=== PATIENT | female | born 1970 | race Caucasian/White ===

== ENCOUNTER 2019-04-06 10:37 | Emergency (ER) | payer BC ==
[2019-04-06 11:11] VITALS: TEMP 98
[2019-04-06] MEDS ORDERED: NALOXONE 0.4 MG/ML 1 ML VIAL IV PRN (11:59)
[2019-04-06] MEDS ORDERED: SODIUM CHLORIDE 0.9% 1,000 ML IV SCH (12:00)
--- NOTE | 2019-04-06 12:06 | ED ---
General Adult HPI - General Chief complaint: Eye Problems Stated complaint: Eye Infection/Problems Time Seen by Provider: 04/06/19 11:13 Source: patient, RN notes reviewed Mode of arrival: ambulatory Limitations: no limitations - History of Present Illness Initial comments: Patient is a pleasant 48-year-old female presenting to the emergency department after being seen by ophthalmology. Patient states she did have laser surgery done less than 2 weeks ago. Patient states a week ago she started having redness. Patient states redness persists. Patient was started on antibiotic eyedrops however believe she had a reaction to that. Patient went back to see the eye doctor again and was placed on different eyedrops as well as oral medication. Patient states no improvement of symptoms. Patient has mild discomfort however is tolerable. No pain with eye movement. Dr. Hernandez did call and recommends patient have iv Rocephin for 3 days. He states patient does not need ophthalmology consult this time unless she does not improve. He states patient also does not need computed tomography scan. Patient states she is on Vigamox at this time - Related Data Home Medications Medication Instructions Recorded Confirmed Amoxicillin/Potassium Clav 1 tab PO Q12HR 04/06/19 04/06/19 [Augmentin 500-125 Tablet] Moxifloxacin HCl [Moxifloxacin] 1 drop LEFT EYE Q2H 04/06/19 04/06/19 Allergies Allergy/AdvReac Type Severity Reaction Status Date / Time cyclobenzaprine AdvReac Vomiting Verified 04/06/19 12:25 [From Flexeril] dexamethasone [From TobraDex] AdvReac Swelling Verified 04/06/19 12:25 tobramycin [From TobraDex] AdvReac Swelling Verified 04/06/19 12:25 Review of Systems ROS Statement: Those systems with pertinent positive or pertinent negative responses have been documented in the HPI. ROS Other: All systems not noted in ROS Statement are negative. Constitutional: Denies: fever, chills Eyes: Reports: as per HPI, eye discharge (Minimal yellow). Denies: vision change ENT: Denies: throat pain Respiratory: Denies: cough Cardiovascular: Denies: chest pain Endocrine: Denies: fatigue Gastrointestinal: Denies: abdominal pain Genitourinary: Denies: dysuria Musculoskeletal: Denies: back pain Skin: Denies: rash Neurological: Denies: headache Past Medical History Past Medical History: Eye Disorder History of Any Multi-Drug Resistant Organisms: None Reported Past Surgical History: Section Additional Past Surgical History / Comment(s): laser eye surgery Past Psychological History: No Psychological Hx Reported Smoking Status: Never smoker Past Alcohol Use History: None Reported Past Drug Use History: None Reported General Exam Limitations: no limitations General appearance: alert, in no apparent distress Head exam: Present: normocephalic Eye exam: Present: PERRL, EOMI, conjunctival injection (On the left). Absent: nystagmus ENT exam: Present: normal oropharynx Neck exam: Present: normal inspection Respiratory exam: Present: normal lung sounds bilaterally Cardiovascular Exam: Present: regular rate, normal rhythm GI/Abdominal exam: Present: soft. Absent: tenderness Extremities exam: Present: normal inspection Neurological exam: Present: alert, CN II-XII intact Psychiatric exam: Present: normal affect, normal mood Skin exam: Present: normal color Course Vital Signs 04/06/19 04/06/19 11:08 12:24 Temperature 98.0 F Pulse Rate 84 86 Respiratory 19 16 Rate Blood Pressure 146/102 123/71 O2 Sat by Pulse 98 99 Oximetry Medical Decision Making - Medical Decision Making Case was discussed in detail with Dr. Calderon who is familiar with this patient. He states if patient is comfortable with that she can be discharged following Rocephin and he will get it for her in the office tomorrow as well as Wednesday and see her there. Patient again reevaluated and does request this. She states she has a child at home that needs extra care and resting in the hospital would be extremely difficult for her. Patient states she does have an ophthalmology appointment on Wednesday and is advised to follow-up sooner if symptoms worsen. - Lab Data Result diagrams: 04/06/19 11:55 04/06/19 11:55 Lab Results 04/06/19 04/06/19 Range/Units 11:55 11:55 WBC 5.1 (3.8-10.6) k/uL RBC 5.15 (3.80-5.40) m/uL Hgb 15.1 (11.4-16.0) gm/dL Hct 43.4 (34.0-46.0) % MCV 84.2 (80.0-100.0) fL MCH 29.3 (25.0-35.0) pg MCHC 34.8 (31.0-37.0) g/dL RDW 12.5 (11.5-15.5) % Plt Count 244 (150-450) k/uL Neutrophils % 57 % Lymphocytes % 33 % Monocytes % 6 % Eosinophils % 1 % Basophils % 0 % Neutrophils # 2.9 (1.3-7.7) k/uL Lymphocytes # 1.7 (1.0-4.8) k/uL Monocytes # 0.3 (0-1.0) k/uL Eosinophils # 0.1 (0-0.7) k/uL Basophils # 0.0 (0-0.2) k/uL Sodium 141 (137-145) mmol/L Potassium 4.2 (3.5-5.1) mmol/L Chloride 102 (98-107) mmol/L Carbon Dioxide 29 (22-30) mmol/L Anion Gap 10 mmol/L BUN 11 (7-17) mg/dL Creatinine 0.67 (0.52-1.04) mg/dL Est GFR (CKD-EPI)AfAm >90 (>60 ml/min/1.73 sqM) Est GFR (CKD-EPI)NonAf >90 (>60 ml/min/1.73 sqM) Glucose 92 (74-99) mg/dL Calcium 9.6 (8.4-10.2) mg/dL Total Bilirubin 1.1 (0.2-1.3) mg/dL AST 25 (14-36) U/L ALT 21 (4-34) U/L Alkaline Phosphatase 67 (38-126) U/L Total Protein 8.1 (6.3-8.2) g/dL Albumin 5.0 (3.5-5.0) g/dL Disposition Clinical Impression: Preseptal cellulitis Disposition: HOME SELF-CARE Is patient prescribed a controlled substance at d/c from ED?: No Time of Disposition: 13:13
[2019-04-06 12:25] VITALS: BP 123/71; PULSE 86; RESP 16
[2019-04-06 12:36] LABS: Basophils % (A) 0 %; Eosinophils # (A) 0.1 k/uL (0-0.7); Eosinophils % (A) 1 %; HCT 43.4 % (34.0-46.0); HGB 15.1 gm/dL (11.4-16.0); Lymphocytes # (A) 1.7 k/uL (1.0-4.8); Lymphocytes % (A) 33 %; MCH 29.3 pg (25.0-35.0); MCHC 34.8 g/dL (31.0-37.0); MCV 84.2 fL (80.0-100.0); Mean Platelet Volume 7.9; Monocytes # (A) 0.3 k/uL (0-1.0); Monocytes % (A) 6 %; Neutrophils # (A) 2.9 k/uL (1.3-7.7); Neutrophils % (A) 57 %; Platelet Count 244 k/uL (150-450); RBC 5.15 m/uL (3.80-5.40); RDW 12.5 % (11.5-15.5); WBC 5.1 k/uL (3.8-10.6)
[2019-04-06 12:45] LABS: ALT 21 U/L (4-34); AST 25 U/L (14-36); African American GFR (CKD) >90 (>60 ml/min/1.73 sqM); Alkaline Phosphatase 67 U/L (38-126); Anion Gap 10 mmol/L; Blood Urea Nitrogen 11 mg/dL (7-17); Calcium 9.6 mg/dL (8.4-10.2); Carbon Dioxide 29 mmol/L (22-30); Chloride 102 mmol/L (98-107); Glucose 92 mg/dL (74-99); Non-African American GFR(CKD) >90 (>60 ml/min/1.73 sqM); Potassium 4.2 mmol/L (3.5-5.1); Sodium 141 mmol/L (137-145); Total Bilirubin 1.1 mg/dL (0.2-1.3); Total Protein 8.1 g/dL (6.3-8.2)
== END 2019-04-06 13:17 | disposition home or self-care (01) ==
LOC: EC 10:37 → 6NMEDSUR 12:00 → UNDOADMOB 12:00 → 6NMEDSUR 12:28 → EC 13:17
DX: L03.213 Periorbital cellulitis (principal); Z88.1 Allergy status to other antibiotic agents; Z88.8 Allergy status to other drugs, medicaments and biological substances; Z98.890 Other specified postprocedural states; Z53.8 Procedure and treatment not carried out for other reasons
CPT/HCPCS: 80053; 85025; 87040; 99283; 96365; J0696

== ENCOUNTER 2020-07-19 18:38 | Emergency (ER) | payer BC ==
[2020-07-19 19:09] VITALS: TEMP 99.1
[2020-07-19] MEDS ORDERED: KETOROLAC 15 MG/ML 1 ML VIAL IVP STA (19:57)
[2020-07-19] MEDS ORDERED: SODIUM CHLORIDE 0.9% 1,000 ML IV ONE (19:57)
[2020-07-19] MEDS ORDERED: DEXAMETHASONE SOD PHOSPHATE 10 MG/ML 1 ML VIAL IV STA (19:57)
--- NOTE | 2020-07-19 20:44 | ED ---
General Adult HPI - General Chief complaint: Fever Stated complaint: Covid +, SOB, chest pain Time Seen by Provider: 07/19/20 19:41 Source: patient Mode of arrival: ambulatory Limitations: no limitations - History of Present Illness Initial comments: 50-year-old male patient presents to the emergency department today for evaluation of increased chest pain. Patient was diagnosed with Covid on Wednesday. States she's been having symptoms for the last 11 days. States she still has significant cough. States she constantly has pain in her chest, the muscles in her abdomen are sore as well. States the pain gets slightly worse when taking a breath. Denies taking any medications for her symptoms. States she feels generally unwell and sick. Does report some shortness of breath. Has had some nausea and diarrhea for the last three days. Reports intermittent fevers. Patient denies any recent rash, nausea, vomiting, diarrhea, constipation, back pain, numbness, tingling, dizziness, weakness, hematuria, dysuria, urinary urgency, urinary frequency, headache, visual changes, or any other complaints. - Related Data Home Medications Medication Instructions Recorded Confirmed Amoxicillin/Potassium Clav 1 tab PO Q12HR 04/06/19 04/06/19 [Augmentin 500-125 Tablet] Moxifloxacin HCl [Moxifloxacin] 1 drop LEFT EYE Q2H 04/06/19 04/06/19 Previous Rx's Medication Instructions Recorded Albuterol Sulfate [Proair Hfa] 1 - 2 puff INHALATION Q6HR PRN #1 07/19/20 inhaler Dexamethasone [Decadron] 6 mg PO DAILY #9 tablet 07/19/20 Allergies Allergy/AdvReac Type Severity Reaction Status Date / Time cyclobenzaprine AdvReac Vomiting Verified 07/19/20 19:09 [From Flexeril] dexamethasone [From TobraDex] AdvReac Swelling Verified 07/19/20 19:09 tobramycin [From TobraDex] AdvReac Swelling Verified 07/19/20 19:09 Review of Systems ROS Statement: Those systems with pertinent positive or pertinent negative responses have been documented in the HPI. ROS Other: All systems not noted in ROS Statement are negative. Past Medical History Past Medical History: Eye Disorder Additional Past Medical History / Comment(s): Covid 07/31 History of Any Multi-Drug Resistant Organisms: None Reported Past Surgical History: Section Additional Past Surgical History / Comment(s): laser eye surgery Past Psychological History: No Psychological Hx Reported Smoking Status: Former smoker Past Alcohol Use History: None Reported Past Drug Use History: None Reported General Exam Limitations: no limitations General appearance: alert, in no apparent distress, other (This is a well- developed, well-nourished adult female patient in no acute distress. Vital signs upon presentation temperature 99.1F, pulse 84, respirations 20, blood pressure 124/69, pulse ox 94% on room air.) Eye exam: Present: normal appearance, PERRL, EOMI. Absent: scleral icterus, conjunctival injection, periorbital swelling ENT exam: Present: normal exam, normal oropharynx, mucous membranes moist Respiratory exam: Present: normal lung sounds bilaterally. Absent: respiratory distress, wheezes, rales, rhonchi, stridor Cardiovascular Exam: Present: regular rate, normal rhythm, normal heart sounds. Absent: systolic murmur, diastolic murmur, rubs, gallop, clicks GI/Abdominal exam: Present: soft, normal bowel sounds. Absent: distended, tenderness, guarding, rebound, rigid Neurological exam: Present: alert, oriented X3, CN II-XII intact Psychiatric exam: Present: normal affect, normal mood Skin exam: Present: warm, dry, intact, normal color. Absent: rash Course Vital Signs 07/19/20 07/19/20 19:06 21:32 Temperature 99.1 F Pulse Rate 84 107 H Respiratory 20 22 Rate Blood Pressure 124/69 133/89 O2 Sat by Pulse 94 L 93 L Oximetry Medical Decision Making - Medical Decision Making 50-year-old female patient recently diagnosed with COVID, symptomatic for the last 11 days presents to the emergency department today for evaluation of shortness of breath and chest pain. Physical examination did reveal clear equal lung sounds. Labs reviewed and were relatively unremarkable, CRP and LDH were elevated. Chest xray showed bilateral infiltrates. She was given IV fluids and dexamethasone. She'll be discharged with prescription for dexamethasone and Pro Air. She is instructed to follow-up with her primary care physician for recheck in 1-2 days. Return parameters were discussed in detail. She verbalizes understanding and agrees with this plan. Case discussed with Dr. Aguilar. - Lab Data Result diagrams: 07/19/20 20:25 07/19/20 20:25 Lab Results 07/19/20 07/19/20 Range/Units 20:25 20:25 WBC 4.0 (3.8-10.6) k/uL RBC 5.28 (3.80-5.40) m/uL Hgb 14.6 (11.4-16.0) gm/dL Hct 43.0 (34.0-46.0) % MCV 81.4 (80.0-100.0) fL MCH 27.7 (25.0-35.0) pg MCHC 34.0 (31.0-37.0) g/dL RDW 13.3 (11.5-15.5) % Plt Count 124 L (150-450) k/uL MPV 9.0 Neutrophils % 74 % Lymphocytes % 16 % Monocytes % 8 % Eosinophils % 0 % Basophils % 0 % Neutrophils # 3.0 (1.3-7.7) k/uL Lymphocytes # 0.6 L (1.0-4.8) k/uL Monocytes # 0.3 (0-1.0) k/uL Eosinophils # 0.0 (0-0.7) k/uL Basophils # 0.0 (0-0.2) k/uL Sodium 131 L (137-145) mmol/L Potassium 3.1 L (3.5-5.1) mmol/L Chloride 92 L (98-107) mmol/L Carbon Dioxide 28 (22-30) mmol/L Anion Gap 11 mmol/L BUN 11 (7-17) mg/dL Creatinine 0.61 (0.52-1.04) mg/dL Est GFR (CKD-EPI)AfAm >90 (>60 ml/min/1.73 sqM) Est GFR (CKD-EPI)NonAf >90 (>60 ml/min/1.73 sqM) Glucose 123 H (74-99) mg/dL Calcium 8.4 (8.4-10.2) mg/dL Total Bilirubin 1.3 (0.2-1.3) mg/dL AST 48 H (14-36) U/L ALT 33 (4-34) U/L Alkaline Phosphatase 48 (38-126) U/L Lactate Dehydrogenase 965 H (313-618) U/L C-Reactive Protein 42.2 H (<10.0) mg/L Total Protein 6.6 (6.3-8.2) g/dL Albumin 3.8 (3.5-5.0) g/dL - Radiology Data Radiology results: report reviewed, image reviewed One view x-ray of the chest is obtained. Report was reviewed in its entirety. Impression by Dr. Kingston shows scattered peripheral nonspecific infiltrates. Correlate for atypical pneumonia. Disposition Clinical Impression: Pneumonia due to COVID-19 virus Disposition: HOME SELF-CARE Condition: Good Instructions (If sedation given, give patient instructions): Coronavirus Disease 2019 (COVID-19), Viral Pneumonia (ED) Additional Instructions: Take medications as directed. Use inhaler 2 puffs every 4-6 hours as needed. Follow-up through primary care physician for recheck in 1-2 days. Return to the emergency department for any new, worsening, or concerning symptoms. Prescriptions: Dexamethasone [Decadron] 6 mg PO DAILY #9 tablet Albuterol Sulfate [Proair Hfa] 1 - 2 puff INHALATION Q6HR PRN #1 inhaler PRN Reason: Shortness Of Breath Is patient prescribed a controlled substance at d/c from ED?: No Referrals: Man Dash Jr, DO [Primary Care Provider] - 1-2 days Time of Disposition: 21:35
[2020-07-19 21:00] LABS: Basophils % (A) 0 %; Eosinophils % (A) 0 %; HGB 14.6 gm/dL (11.4-16.0); Lymphocytes # (A) 0.6 k/uL (1.0-4.8); Lymphocytes % (A) 16 %; MCH 27.7 pg (25.0-35.0); MCV 81.4 fL (80.0-100.0); Monocytes # (A) 0.3 k/uL (0-1.0); Monocytes % (A) 8 %; Neutrophils % (A) 74 %; Platelet Count 124 k/uL (150-450); RBC 5.28 m/uL (3.80-5.40); RDW 13.3 % (11.5-15.5)
--- NOTE | 2020-07-19 21:07 | XR ---
EXAMINATION TYPE: XR chest 1V DATE OF EXAM: 07/19/2020 COMPARISON: None INDICATION: Cough, chest pain TECHNIQUE: Single frontal view of the chest is obtained. FINDINGS: The heart size is normal. The pulmonary vasculature is normal. Scattered peripheral infiltrates are present. Correlate for atypical pneumonia IMPRESSION: 1. Scattered peripheral nonspecific infiltrates. Correlate for atypical pneumonia
[2020-07-19 21:09] LABS: ALT 33 U/L (4-34); AST 48 U/L (14-36); African American GFR (CKD) >90 (>60 ml/min/1.73 sqM); Albumin 3.8 g/dL (3.5-5.0); Alkaline Phosphatase 48 U/L (38-126); Anion Gap 11 mmol/L; Blood Urea Nitrogen 11 mg/dL (7-17); C Reactive Protein 42.2 mg/L (<10.0); Calcium 8.4 mg/dL (8.4-10.2); Carbon Dioxide 28 mmol/L (22-30); Chloride 92 mmol/L (98-107); Glucose 123 mg/dL (74-99); LDH 965 U/L (313-618); Non-African American GFR(CKD) >90 (>60 ml/min/1.73 sqM); Potassium 3.1 mmol/L (3.5-5.1); Sodium 131 mmol/L (137-145); Total Bilirubin 1.3 mg/dL (0.2-1.3); Total Protein 6.6 g/dL (6.3-8.2)
[2020-07-19] MEDS ORDERED: POTASSIUM CHLORIDE ER 20 MEQ TAB.ER PO STA (21:13)
[2020-07-19 21:33] VITALS: BP 133/89; PULSE 107; RESP 22
== END 2020-07-19 21:45 | disposition home or self-care (01) ==
LOC: EC 18:38
DX: U07.1 COVID-19 (principal); J12.82 Pneumonia due to coronavirus disease 2019; Z87.891 Personal history of nicotine dependence
CPT/HCPCS: 36415; 80053; 83615; 85025; 86140; 71045; 99285; 96374; 96375; 96361; J1100; J1885

== ENCOUNTER → 2021-05-23 | Outpatient (CLI) | payer BC ==
--- NOTE | 2021-05-23 14:47 | US ---
EXAMINATION TYPE: US abdomen complete DATE OF EXAM: 05/23/2021 COMPARISON: NONE CLINICAL HISTORY: R1013 EPIGASTRIC PAIN. EXAM MEASUREMENTS: Liver Length: 13.4 cm Gallbladder Wall: 0.2cm CBD: 0.3 cm Spleen: 11.7 cm Right Kidney: 10.6 x 3.4 x 5.0 cm Left Kidney: 11.2 x 4.6 x 4.4 cm Patient of large body habitus Pancreas: wnl Liver: Increased attenuation Gallbladder: cholelithiasis Evidence for sonographic Kothari's sign: no CBD: wnl Spleen: wnl Right Kidney: No hydronephrosis or masses seen Left Kidney: No hydronephrosis or masses seen, inferior pole obscured by bowel gas Upper IVC: wnl Abd Aorta: wnl as seen, bifurcation obscured by overlying bowel gas IMPRESSION: 1. Cholelithiasis.
== END | disposition home or self-care (01) ==
LOC: RADUSWWP 08:12
PROVIDERS: ATTEND Family Medicine
DX: K80.20 Calculus of gallbladder without cholecystitis without obstruction (principal)
CPT/HCPCS: 76700

== ENCOUNTER → 2024-11-03 | Outpatient (CLI) | payer BC ==
--- NOTE | 2024-11-03 12:11 | CT ---
EXAMINATION TYPE: CT abdomen pelvis wo con DATE OF EXAM: 11/03/2024 11:46 AM COMPARISON: None. CLINICAL INDICATION: Female, 54 years old with history of R35.0 FREQUENCY OF URINATION R31.29 HEMATUR IA, Bilat flank and lower abd pain. TECHNIQUE: Axial images were obtained from above the diaphragm to the pubic rami in the axial plane a t 5 mm thick sections. Reconstructed images are reviewed on the computer in the coronal plane. CONTRAST: mL of . Study performed without Oral Contrast DLP: 722.6 mGycm, Automated exposure control for dose reduction was used. FINDINGS: Limited CT sections are obtained the lung bases. The lung bases are clear. CT ABDOMEN: Liver: Normal Spleen: Normal Pancreas: Normal Adrenal glands: The adrenal glands are normal. Gallbladder: Multiple gallstones are present. Kidneys: No masses are evident. No hydronephrosis is present. No cysts are present. No renal stone s evident. Aorta: Vascular calcification is within the aorta. Inferior vena cava: Normal. CT PELVIS: Loops of bowel within the abdomen and pelvis are normal. This study is without oral contrast limi ting bowel evaluation. Appendix: Normal as visualized. Urinary bladder: Normal. Genitourinary structures: Uterus and adnexa appear normal Osseous structures: No suspicious lytic or sclerotic lesions. IMPRESSION: 1. Cholelithiasis. 2. No suspicious abnormality to account for hematuria. [facility], , 11/03/2024 12:08 PM
== END | disposition home or self-care (01) ==
LOC: RADCTMAIN 11:17
PROVIDERS: ATTEND Family Medicine
DX: K80.20 Calculus of gallbladder without cholecystitis without obstruction (principal)
CPT/HCPCS: 74176